=== PATIENT | female | born 1970 | race Caucasian/White ===

== ENCOUNTER → 2017-02-08 | Outpatient (CLI) | payer MEDICARE ==
[~2017-02-08] MED LIST: AMIT50TA3 PO; ASPI-557 PO; AZIT250T6 PO; CLOZ100T32 PO; CYCL-375 PO; DESV100T PO; FERR240T6 PO; GLIM4TAB3 PO; HYDR-3989 PO; HYDR50TA48 PO; INSU100I21 SQ; LINA290C PO; LIRA0.6P2 SQ; MEDR10TA50 PO; MULT1TAB69 PO; OMEP20CA10 PO; POLY255P2 PO; PRED20TA PO; SIMV20TA6 PO; SITA100T6 PO; TRAM-277 PO; VITA400C19 PO
--- NOTE | 2017-02-08 14:09 | DI ---
Indication: ITS.REASON: M54.5 LOW BACK PAIN PROCEDURE: MRI LUMBAR SPINE W/O CONTRAST: Encounter: Initial Comparison: None Technique: Multiplanar multisequence MR imaging of the lumbar spine was performed without contrast. Findings: There is bilateral L5 spondylolysis and minimal grade 1 spondylolisthesis of L5 on S1. Alignment of the lumbar spine is otherwise normal. Vertebral body heights are maintained. No acute fracture identified. The conus medullaris terminates normally at L1. The paraspinal soft tissues are within normal limits. Segmental analysis: L1-L2: Normal L2-L3: Normal L3-L4: Normal L4-L5: Mild disk desiccation without focal herniation or central canal stenosis. Slight disk height loss. No neural foraminal narrowing. L5-S1: Spondylolysis and minimal spondylolisthesis with a small central disk protrusion but no significant central spinal canal narrowing. There is a left extra foraminal disk protrusion abutting the exiting left L5 nerve root. No true neural foraminal stenosis. Impression: Minimal spondylolisthesis of L5 on S1 with mild degenerative disk disease at this level. .
== END ==
LOC: IMA 13:17
PROVIDERS: ATTEND Physician Assistant Medical
DX: M51.37 Other intervertebral disc degeneration, lumbosacral region (principal); M43.17 Spondylolisthesis, lumbosacral region; M54.5 Low back pain

== ENCOUNTER → 2017-03-11 | Outpatient (CLI) | payer MEDICARE ==
--- NOTE | 2017-03-11 14:49 | DI ---
Indication: ITS.REASON: M25.551 Pain in right hip PROCEDURE: PELVIS 1-2 VIEW DEDICATED PELV: Encounter: Initial Comparison: None Findings: There is no acute fracture, dislocation or malalignment identified. Degenerative facet changes noted at L5-S1. Hip joint spaces are normal. Impression: No acute osseous abnormality. .
== END ==
LOC: IMA 14:24
PROVIDERS: ATTEND Obstetrics & Gynecology
DX: M25.551 Pain in right hip (principal)